=== PATIENT | female | born 1970 | race Caucasian/White ===

== ENCOUNTER 2017-11-03 11:04 | Inpatient (IN) | payer OTHER ==
[2017-11-03] MEDS ORDERED: ACETAMINOPHEN 500 MG TAB PO ONE (11:20)
[2017-11-03] MEDS ORDERED: ceFAZolin 2 GM/SWFI 2 GM/20 ML SYR IVP ONE (11:20)
[2017-11-03] MEDS ORDERED: GABAPENTIN 300 MG CAP PO ONE (11:20)
[2017-11-03] MEDS ORDERED: ACETAMINOPHEN 500 MG TAB ONE (11:25)
[2017-11-03] MEDS ORDERED: ceFAZolin 2 GM/SWFI 20 ML SYR IVP ONE (11:25)
[2017-11-03] MEDS ORDERED: GABAPENTIN 300 MG CAP ONE (11:26)
[2017-11-03] MEDS ORDERED: LR 1,000 ML IV ONE (11:27)
[2017-11-03] MEDS ORDERED: THROMBIN (BOVINE) 5,000 UNIT VIAL TP ONE (11:55)
[2017-11-03] MEDS ORDERED: BUPIVACAINE 0.25% 30 ML SDV ONE (11:55)
[2017-11-03] MEDS ORDERED: CHLORHEXIDINE GLUC HIBICLENS 118 ML BTL TP ONE (11:55)
[2017-11-03] MEDS ORDERED: BACITRACIN 50,000 UNITS/10 ML SYR IRR ONE ×2 (11:56→14:50)
[2017-11-03] MEDS ORDERED: MIDAZOLAM 2 MG/2 ML VIAL IVP ONE (12:12)
--- NOTE | 2017-11-03 12:14 | PDANEPAE ---
ANE History of Present Illness spinal stenosis s/f L5/S1 TLIF ANE Past Medical History - Cardiovascular History Hx Hypertension: No Hx Arrhythmias: No Hx Chest Pain: No Hx Coronary Artery / Peripheral Vascular Disease: No Hx CHF / Valvular Disease: No Hx Palpitations: No - Pulmonary History Hx COPD: No Hx Asthma/Reactive Airway Disease: No Hx Recent Upper Respiratory Infection: No Hx Oxygen in Use at Home: No Hx Sleep Apnea: No Sleep Apnea Screening Result - Last Documented: Negative - Neurologic History Hx Cerebrovascular Accident: No Hx Seizures: No Hx Dementia: No - Endocrine History Hx Diabetes: No - Renal History Hx Renal Disorders: No - Liver History Hx Hepatic Disorders: No - Neurological & Psychiatric Hx Hx Neurological and Psychiatric Disorders: Yes Neurological / Psychiatric History Comment: numbness in both feet - Cancer History Hx Cancer: No - Congenital Disorder History Hx Congenital Disorders: No - GI History Hx Gastrointestinal Disorders: No - Other Health History Other Health History: none - Chronic Pain History Chronic Pain: Yes (joint pain,neck) - Surgical History Prior Surgeries: ACL repair,Hernia 2016 ANE Review of Systems Review of Systems: - Exercise capacity Exercise capacity: >=4 METS METS (RN): 4 METS ANE Patient History - Allergies Allergies/Adverse Reactions: Sulfa (Sulfonamide Antibiotics) Allergy (Verified 11/03/17 11:40) Rash - Home Medications Home medications: home medication list seen and reviewed Home Medications: Herbals/Supplements -Info Only 1 ea PO DAILY 09/28/17 [Last Taken Unknown] - NPO status NPO Status: no food or drink >8 hours NPO Since - Liquids (Date): 11/02/17 NPO Since - Liquids (Time): 20:00 NPO Since - Solids (Date): 11/01/17 NPO Since - Solids (Time): 20:00 - Anes Hx Anes Hx: no prior problems - Smoking Hx Smoking Status: Never smoked - Alcohol Use Alcohol Use: Rarely - Family Anes Hx Family Anes Hx: none Family Hx Anesthesia Complications: none ANE Labs/Vital Signs - Labs - CBC WBC: reviewed - Vital Signs Blood Pressure: 126/85 Heart Rate: 84 Respiratory Rate: 16 O2 Sat (%): 96 Height: 172.72 cm Weight: 72.575 kg ANE Physical Exam - Airway Neck exam: FROM Mallampati Score: Class 1 Mouth exam: normal dental/mouth exam - Pulmonary Pulmonary: no respiratory distress - Cardiovascular Cardiovascular: regular rate and rhythym - ASA Status ASA Status: I ANE Anesthesia Plan Anesthesia Plan: general endotracheal anesthesia
[2017-11-03] MEDS ORDERED: MIDAZOLAM 2 MG/2 ML VIAL ONE (12:19)
--- NOTE | 2017-11-03 12:28 | PDHPUP ---
History & Physical Update H&P update statement: This history and physical update is based on an assessment of the patient which was completed after admission or registration (within 24 hours), but prior to the surgery/procedure. H&P update: H&P reviewed & patient examined, no change in patient's condition since H&P completed
[2017-11-03] MEDS ORDERED: REMIFENTANIL HCL 1 MG VIAL ONE ×2 (12:46→14:55)
[2017-11-03] MEDS ORDERED: DEXAMETHASONE 4 MG/ML VIAL ONE ×2 (12:46)
[2017-11-03] MEDS ORDERED: PROPOFOL/EMULSION 500 MG/50 ML BOTTLE IV ONE ×2 (12:46→14:55)
[2017-11-03] MEDS ORDERED: ONDANSETRON 4 MG/2 ML VIAL ONE ×2 (12:46→18:11)
[2017-11-03] MEDS ORDERED: fentaNYL 100 MCG/2 ML INJ ONE ×4 (12:46→18:10)
[2017-11-03] MEDS ORDERED: LIDOCAINE 2% 100 MG/5 ML SYR ONE (12:46)
[2017-11-03] MEDS ORDERED: PHENYLEPHRINE HCL 100 MCG/ML SYR ONE (12:57)
[2017-11-03] MEDS ORDERED: MAGNESIUM HYDROXIDE 30 ML UDCUP PO PRN (13:00)
[2017-11-03] MEDS ORDERED: ONDANSETRON DISINTEGRATING 4 MG TAB PO PRN (13:00)
[2017-11-03] MEDS ORDERED: POLYETHYLENE GLYCOL 3350 17 GM PKT PO PRN (13:00)
[2017-11-03] MEDS ORDERED: ONDANSETRON 4 MG/2 ML VIAL IVP PRN ×2 (13:00→17:15)
[2017-11-03] MEDS ORDERED: diphenhydrAMINE 25 MG CAP PO PRN (13:00)
[2017-11-03] MEDS ORDERED: BISACODYL 10 MG SUPP PR PRN (13:00)
[2017-11-03] MEDS ORDERED: LACTULOSE 20 GM/30 ML UDCUP PO PRN (13:00)
[2017-11-03] MEDS ORDERED: ACETAMINOPHEN 325 MG TAB PO PRN (13:04)
[2017-11-03] MEDS ORDERED: NALOXONE HCL 0.4 MG/ML INJ IVP PRN ×2 (13:04→17:15)
[2017-11-03] MEDS ORDERED: morphINE PCA 30 MG/30 ML PCA IV PRN (13:04)
[2017-11-03] MEDS ORDERED: NS 1,000 ML IV SCH (13:15)
[2017-11-03] MEDS ORDERED: DEXAMETHASONE 4 MG/ML VIAL IVP PRN (17:15)
[2017-11-03] MEDS ORDERED: OXYCODONE/APAP 5/325 TAB PO PRN (17:15)
[2017-11-03] MEDS ORDERED: LABETALOL HCL 5 MG/ML 20 ML MDV IVP PRN (17:15)
[2017-11-03] MEDS ORDERED: MEPERIDINE 25 MG/ML SYR IVP PRN (17:15)
[2017-11-03] MEDS ORDERED: LR 500 ML IV PRN (17:15)
[2017-11-03] MEDS ORDERED: METOCLOPRAMIDE 10 MG/2 ML VIAL IVP PRN (17:15)
[2017-11-03] MEDS ORDERED: HYDROCODONE/APAP 5/325 TAB PO PRN (17:15)
[2017-11-03] MEDS ORDERED: PROMETHAZINE HCL 25 MG/ML INJ IVP PRN (17:15)
[2017-11-03] MEDS ORDERED: ALBUTEROL 3 ML DEYVIAL IH PRN (17:15)
[2017-11-03] MEDS ORDERED: PHENYLEPHRINE HCL 100 MCG/ML SYR IVP PRN (17:15)
[2017-11-03] MEDS ORDERED: ACETAMINOPHEN 500 MG TAB PO PRN (17:15)
--- NOTE | 2017-11-03 17:27 | POSTOPPROG ---
Post Op Note Date of Operation: 11/03/17 Surgeon: Chanell Cervantes Brake Specialist: Chanell Cervantes LINOTYPE OPERATOR Anesthesiologist: Ambrocio Anesthesia: GET(General Endotracheal) Pre-op Diagnosis: Lumbar Stenosis Procedure: L5-S1 TLIF Inf/Abcess present in the surg proc area at time of surgery?: No Depth: Deep Incisional (Fascial) EBL: 100-500 Total fluids administered: see anesthesia Complications: none Drains: David Pemberton Date of Surgery: 11/03/17 Post Op Day: 0 Assessment/Plan: 47 yr old s/p L5-S1 TLIF for bilateral leg pain, R>L Plan: -PT/OT -Post op lumbar xrays in am -Pain management, PLUG OVERWRAP MACHINE TENDER ordered if needed -MADDIE present -Please call neurosurgery with any questions/concerns Subjective: Patient waking up in PACU Objective: Waking up in PACU PERRL Moving extremities x4 5/5 BLE Sensation intact to light touch BLE Dressing CDI MADDIE patent Appropriate Neuro Check Frequency Ordered: Yes
[2017-11-03] MEDS: fentaNYL 100 MCG/2 ML INJ IVP PRN ×4 (17:51→18:24)
[2017-11-03] MEDS ORDERED: METHOCARBAMOL 750 MG TAB ONE (18:10)
[2017-11-03] MEDS: METHOCARBAMOL 750 MG TAB PO PRN (18:20)
--- NOTE | 2017-11-03 19:10 | GOP ---
[f rep st] OPERATIVE REPORT DATE OF OPERATION: 11/03/2017 SURGEON: Madina Edwards MD COLOR SEPARATION PHOTOGRAPHER: Chanell Cervantes NP PREOPERATIVE DIAGNOSIS: 1. Lumbar spondylolysis, L5 on S1. 2. Lumbar spondylolisthesis, L5 on S1. 3. Lumbar degenerative disk disease L5-S1. POSTOPERATIVE DIAGNOSIS: 1. Lumbar spondylolysis, L5 on S1. 2. Lumbar spondylolisthesis, L5 on S1. 3. Lumbar degenerative disk disease L5-S1. PROCEDURE PERFORMED: 1. Posterolateral and intervertebral arthrodesis, single-level, L5-S1, with decompressions bilateral ly and Mariee decompression bilaterally with removal of abnormal pars interarticularis bilaterally, L5- S1 ([id number]). 2. Placement of biomechanical intervertebral device L5-S1. 3. Posterior segmental instrumentation across the single interspace L5-S1. Same incision bone graft harvest, spinal stereotaxy, microscope. FINDINGS: ESTIMATED BLOOD LOSS: 150 cc. INDICATIONS: The patient is a 47-year-old with terrible chronic bilateral lumbosacral radiculopathy, right greater than left, with chronic numbness and tingling in her feet, and MRI demonstrated spondy lolysis of L5, collapse of the L5-S1 disk, compression of the right L5 nerve root in the neural shelton en, and severe bilateral foraminal stenosis; but again, there is actual nerve compression on the righ t at L5-S1 due to the spondylolysis, spondylolisthesis, and collapse of the disk space, as well as glez bannular disk fragment in the neural foramen pinching the L5 exiting nerve root. I suggest a single- level fusion. We discussed the occasional need to do a 2-level fusion, but I thought a single-level should suffice. She understood the risk of adjacent segment disease, and she did want to proceed. S he knew that further spine surgeries are occasionally necessary. She knew there was risk of pseudoar throsis and continued symptoms and knew that surgery does not always alleviate her preoperative sympt oms, and on occasion can make them worse. DESCRIPTION OF PROCEDURE: The patient was taken to the operating room and placed in supine position. General anesthesia was begun. She had some supraventricular tachycardia, but this was treated by A nesthesia prior to induction, and she did fine. She was induced, intubated, and flipped prone on the David table. Care was taken to pad all points of contact. She was prepped and draped in the usua l fashion. We made a 5 cm incision above the L5-S1 interspace. The subcutaneous tissue was dissecte d using Bovie cautery down to the fascia. Subperiosteal dissection was made down to the L5-S1 lamina . The L5 lamina was indeed floating. The abnormal pars interarticularis was identified. The L4-5 f acet joint was abnormal as is common in these cases, but there was nothing unique about this. We denuded the bilateral hypertrophic L5-S1 facet joints. They were not actually especially hypertro phic, but we did denude them to see our pedicle entry site for the S1 pedicles screws. We exposed th e entry site for the L5 pedicle screws, and there was indeed spondylolisthesis. We decorticated the T8 processes, L5-S1, and then attached the Stealth reference frame to the L4 spinous process. An O-a rm spin was made. We used frameless Stealth stereotaxy and placed pedicle screws bilaterally at L5 a nd S1. We used 40 mm screws throughout, except on the left at S1, where we used a 35 mm screw. The S1 screws were bicortical. They were all 6.5 mm. There was excellent bony purchase. We performed a n O-arm spin. All the screws were in excellent position without breach of the pedicle and without br each of the adjacent disk space at L4-5. We then placed a anna down over the tulips, distracted initi ally on the left, because the right side had kissing tulips. This gave us a little more room on the right side, where we then distracted, went back to the left and distracted it a little more, and then went back to the right and finished our distraction. This reduced the spondylolisthesis by a few mi llimeters and opened the neural foramen nicely. We then harvested the complete L5 lamina for autolog ous grafting purposes. Under the microscope, we decompressed the central thecal sac and then worked our way up toward the L5 pedicle and the isthmus of L5 decompressing the exiting L5 nerve root on eac h side. After doing so, we then mobilized the S1 nerve on the right-hand side and incised the L5-S1 disk. Removed the disk and the cartilaginous endplates. We roughened the subchondral bone to create arthrodesis. There was indeed a subannular pretty large fragment in the foramen on the right at L5- S1, and we reduced this fragment into the disk space and removed it. The nerve was completely decomp ressed. We placed bone autograft in the disk space, sized it for a 7 x 28 mm device, placed BMP into the disk space; 1.0 mg was placed in the disk space. We placed the device under fluoroscopic guidan ce and expanded it under fluoroscopic guidance, and we were happy with Elevate device placement. We inspected it visually. It was in the disk space away from both the L5 and the S1 nerve. We then adj usted our anna on the right-hand side between L5 and S1 and relaxed some of the distraction there to i ncrease the lordosis, now that our implant was in. We then final tightened all the cap screws accord ing to company specifications, decorticated all the remaining posterolateral bone bilaterally, placed bone autograft and BMP posterolaterally bilaterally, followed by subfascial drain. We used a grand total of 2.0 mg total BMP for the case. The patient was then closed in multiple layers using Vicryl sutures. Steri-Strips were applied to the skin. She was reversed from anesthesia, extubated, and tr ansferred to recovery room in stable condition. There were no complications. COMPLICATIONS: None. INSTRUMENTATION USED: Silicon Clocksa 5.5 mm system with a titanium anna and a 7 x 28 mm Elevate cag e. COMPLICATIONS: None. /[id number]/MODL
[2017-11-03] MEDS: ACETAMINOPHEN 500 MG TAB PO SCH ×2 (19:42→21:54)
[2017-11-03] MEDS: GABAPENTIN 300 MG CAP PO SCH ×2 (19:43→21:55)
[2017-11-03] MEDS: oxyCODONE IR 5 MG TAB PO PRN (20:25)
[2017-11-03] MEDS: ceFAZolin 2 GM/DEXTROSE 100 ML IV SCH (20:28)
[2017-11-03] MEDS: SENNOSIDES/DOCUSATE SODIUM TAB PO SCH (21:55)
[2017-11-03] MEDS: FAMOTIDINE 20 MG TAB PO SCH (21:55)
[2017-11-04] MEDS: oxyCODONE IR 5 MG TAB PO PRN ×3 (04:48→21:52)
[2017-11-04 04:51] LABS: PLATELET COUNT 197 10^3/uL (150-400)
[2017-11-04] MEDS: ACETAMINOPHEN 500 MG TAB PO SCH ×3 (05:25→21:52)
[2017-11-04] MEDS: GABAPENTIN 300 MG CAP PO SCH ×3 (05:25→21:52)
[2017-11-04] MEDS: ceFAZolin 2 GM/DEXTROSE 100 ML IV SCH (05:25)
--- NOTE | 2017-11-04 08:13 | NEUSURGPN ---
Date of Surgery: 11/03/17 Post Op Day: 1 Assessment/Plan: 47 yr old s/p L5-S1 TLIF for bilateral leg pain, R>L POD#1 Plan: -PT/OT -Post op lumbar xrays pending for today -Pain management, pain currently managed with PO medications -Bilateral hand numbness, likely related to surgical positioning, will follow -AUGUST PERKINS -Please call neurosurgery with any questions/concerns Subjective: Patient has some bilateral hand numbness Objective: AxO x3 PERRL EOMI 5/5 BLE Sensation intact to light touch BLE Dressing CDI MADDIE present Neuro Check Frequency: per routine Urinary Catheter in Place: No Catheter Insertion Date: 11/03/17 - Physician Discussed Patient with : Jerry Patient Seen by : Jerry Neurosurgery Physical Exam - Vitals, I&O, Labs I and O 11/03/17 11/04/17 11/05/17 05:59 05:59 05:59 Intake Total 4000 Output Total 1790 Balance 2210 Weight 72.575 kg Intake: Oral (ml) 275 IV Intake (ml) 2800 IV Infused (ml) 925 Ns 1,000 ml @ 75 mls/hr 925 IV CONT BLANCA Rx#: [id number] Output: Urine (ml) 1450 Catheter 1450 Estimated Blood Loss (ml) 150 MADDIE Drain Output (ml) 190 Back David Pemberton 190 Vital Signs Temp Pulse Resp BP Pulse Ox 36.7 C 66 15 91/55 L 98 11/04/17 07:57 11/04/17 07:57 11/04/17 07:57 11/04/17 07:57 11/04/17 07:57 Laboratory Results 11/04/17 04:38 11/04/17 04:38 ICD10 Worksheet Patient Problems: Problems Problem Status Onset Lumbar stenosis Acute - ICD10 Problem Qualifiers (1) Lumbar stenosis
[2017-11-04] MEDS: SENNOSIDES/DOCUSATE SODIUM TAB PO SCH ×2 (08:27→20:00)
[2017-11-04] MEDS: FAMOTIDINE 20 MG TAB PO SCH ×2 (08:27→23:17)
[2017-11-04] MEDS: METHOCARBAMOL 750 MG TAB PO PRN (08:27)
--- NOTE | 2017-11-04 14:29 | ASMTCMCOM ---
CM Note CM Note Notes: Pt had planned spinal surgery, PT/OT clear pt for home w family support. Anticipate pt will d/c when medically stable. No CM d/c needs identified at this time. CM available for changes/needs. Date Signed: 11/04/2017 02:29 PM Electronically Signed By:ROGELIO Rowland
[2017-11-04] MEDS ORDERED: traMADol 50 MG TAB PO PRN (14:37)
[2017-11-04 16:24] VITALS: RESP 16
[2017-11-05] MEDS: oxyCODONE IR 5 MG TAB PO PRN (03:38)
[2017-11-05] MEDS: GABAPENTIN 300 MG CAP PO SCH (05:35)
[2017-11-05] MEDS: ACETAMINOPHEN 500 MG TAB PO SCH (05:36)
--- NOTE | 2017-11-05 07:17 | POSTANESTH ---
Post Anesthetic Evaluation Cardiovascular Status: Normal, Stable Respiratory Status: Normal, Stable Level of Consciousness/Mental Status: Can Participate in Eval Pain Control: Adequate, Prn Tx Ordered Nausea/Vomiting Control: Adequate, Prn Tx Ordered Complications Possibly Related to Anesthesia: None Noted
[2017-11-05 08:24] VITALS: BP 102/64; PULSE 74; TEMP 99; O2SAT 94
--- NOTE | 2017-11-05 08:29 | NEUSURGPN ---
Assessment/Plan: 47 yr old s/p L5-S1 TLIF for bilateral leg pain, R>L POD#2 Plan: -PT/OT -Post op lumbar xrays with intact hardware -Pain management, pain currently managed with PO medications -DVT prophx: TEDs, SCDs, Lovenox -Please call neurosurgery with any questions/concerns -Discussed with Dr. Edwards Subjective: Denies any new numbness, tingling or weakness Objective: NAD A&Ox3 MAEx4 5/5 and equal in BUE and BLE. Incision c/d/i Catheter Insertion Date: 11/03/17 - Physician Discussed Patient with : Jerry Neurosurgery Physical Exam - Vitals, I&O, Labs I and O 11/04/17 11/05/17 11/06/17 05:59 05:59 05:59 Intake Total 4000 1400 Output Total 1790 90 Balance 2210 1310 Weight 72.575 kg Intake: Oral (ml) 275 1400 IV Intake (ml) 2800 IV Infused (ml) 925 Ns 1,000 ml @ 100 mls/hr 925 IV CONT BLANCA Rx#: [id number] Output: Urine (ml) 1450 Catheter 1450 Estimated Blood Loss (ml) 150 MADDIE Drain Output (ml) 190 90 Back David Pemberton 190 90 Other: Intake Quantity Yes Sufficient Number of Voids Catheter 1 Toilet 1 Vital Signs Temp Pulse Resp BP Pulse Ox 37.2 C 74 16 102/64 94 11/05/17 08:00 11/05/17 08:00 11/05/17 08:00 11/05/17 08:00 11/05/17 08:00 Laboratory Results 11/05/17 04:20 11/04/17 04:38 ICD10 Worksheet Patient Problems: Problems Problem Status Onset Lumbar stenosis Acute
[2017-11-05] MEDS: FAMOTIDINE 20 MG TAB PO SCH (10:40)
[2017-11-05] MEDS: SENNOSIDES/DOCUSATE SODIUM TAB PO SCH (10:41)
--- NOTE | 2017-11-05 16:08 | ASDISCHSUM ---
Discharge Information Plan Status:Home with No Needs Medically Cleared to Leave: Discharge Date:11/05/2017 12:15 PM CM D/C Disposition:Home, Routine, Self-Care ADT D/C Disposition:Home, Routine, Self-Care Projected Discharge Date:11/05/2017 12:15 PM Transportation at D/C: Discharge Delay Reason: Follow-Up Date:11/05/2017 12:15 PM Discharge Slot: Final Diagnosis: Placement Information Patient Contact Information Contact Name:LUISANA Relationship:Friend Address: Work Phone: City: [facility] Phone: State/Zip Code: Email: Financial Information Financial Class:HMO and PPO Plans Primary Plan Desc:ISIAH PPO [employer] Primary Plan Number:[id number] Secondary Plan Desc: Secondary Plan Number: Assessment Information [facility] CM Progress Note CM Note CM Note Notes: Pt had planned spinal surgery, PT/OT clear pt for home w family support. Anticipate pt will d/c when medically stable. No CM d/c needs identified at this time. CM available for changes/needs. Date Signed: 11/04/2017 02:29 PM Electronically Signed By:ROGELIO Rowland Intervention Information
[2017-11-06] MEDS ORDERED: ENOXAPARIN 40 MG/0.4 ML SYR SC SCH (09:00)
== END 2017-11-05 12:15 | disposition home or self-care (01) | DRG 460 ==
LOC: F3N 11:04
PROVIDERS: ADMIT Neurological Surgery; ATTEND Neurological Surgery
PROC: 0SG30AJ Fusion of Lumbosacral Joint with Interbody Fusion Device, Posterior Approach, Anterior Column, Open Approach (ICD-10-PCS; principal; 2017-11-03 13:15)
PROC: 3E0U0GB Introduction of Recombinant Bone Morphogenetic Protein into Joints, Open Approach (ICD-10-PCS; principal; 2017-11-03 13:15)
PROC: 01NB0ZZ Release Lumbar Nerve, Open Approach (ICD-10-PCS; principal; 2017-11-03 13:15)
PROC: 0QB00ZZ Excision of Lumbar Vertebra, Open Approach (ICD-10-PCS; principal; 2017-11-03 13:15)
DX: M43.17 Spondylolisthesis, lumbosacral region (principal); M51.37 Other intervertebral disc degeneration, lumbosacral region
CPT/HCPCS: 97161-GP; 97165-GO; 97535-GO; C1713; J0171; J0690; J1100; J2001; J2250; J2370; J2405; J2704; J3010